=== PATIENT | female | born 2005 | race Caucasian/White ===

== ENCOUNTER 2023-01-15 10:25 | Emergency (ER) | payer OTHER, SELFPAY ==
--- NOTE | ~2023-01-15 | XR_ITS ---
EXAMINATION: XR chest 2V 01/15/2023 11:46 INDICATION: Cough and fever. Shortness of breath. PROCEDURE: 2 view chest COMPARISON: No prior studies for comparison. FINDINGS: The lungs are clear. The cardiomediastinal silhouette is within normal limits. There are no pleural effusions. There is no pneumothorax suspected. IMPRESSION: 1: NO ACUTE CARDIOPULMONARY DISEASE. Reviewed, dictated and finalized at location B.
[2023-01-15 10:34] VITALS: BP 145/106; PULSE 64; RESP 18; TEMP 36.9; O2SAT 100
[2023-01-15 10:37] VITALS: O2SAT 98
--- NOTE | 2023-01-15 10:39 | ED.URI ---
HPI - URI/Sore Throat General Chief Complaint: Upper Respiratory Infection Stated Complaint: hurts to breathe, fever, n/v, cough x 3 weeks Time Seen by Provider: 01/15/23 10:29 History of Present Illness HPI Narrative: 17-year-old female presents the emergency room for evaluation of sinus congestion, postnasal drip, cough, shortness of breath primarily on the right side. Patient states that she has been feeling poorly for approximately 3 weeks. Was seen at [facility] and was tested for COVID flu mono and strep and they were all negative. Related Data Allergies Allergy/AdvReac Type Severity Reaction Status Date / Time No Known Allergies Allergy Verified 01/15/23 10:39 Review of Systems Review of Systems: CONSTITUTIONAL: Denies fever, chills, or sweats. EYES: Denies visual changes, redness, or discharge. ENT: Denies rhinorrhea, congestion, sore throat, or otalgia. CARDIOVASCULAR: Denies chest pain, palpitations, or edema. RESPIRATORY: Reports cough GASTROINTESTINAL: Denies abdominal pain, nausea, vomiting, or diarrhea. GENITOURINARY: Denies dysuria or hematuria. SKIN: Denies rash or itching. MUSCULOSKELETAL: Denies back pain, joint pain, or myalgia. NEUROLOGIC: Denies headache, numbness, dizziness, or weakness. PSYCHIATRIC: Denies anxiety or depression. Exam Narrative: GENERAL: Well-appearing, well-nourished, no physical limitations, and in no acute distress. HEAD: Normocephalic, atraumatic. EYES: Conjunctivae normal, PERRLA and EOMI. ENT: External nose normal, Nares clear, no rhinorrhea or epistaxis. Mucous membranes moist. Oropharynx without tonsillar hypertrophy exudate or other lesions. External ears normal, bilateral TMs normal bilaterally NECK: Supple. No adenopathy or masses. CHEST: Clear to auscultation. No respiratory distress. No wheezes rales or rhonchi. HEART: Regular rate and rhythm. No murmur heard. Normal peripheral pulses. EXTREMITIES: Normal range of motion. No edema. No clubbing or cyanosis SKIN: Warm, dry, no rash. No noted wounds NEURO: No focal deficits. Alert and oriented x3. MAEW. CN's II-XI intact bilaterally, normal gait PSYCH: Cooperative. Normal mood and affect. Course Vital Signs Vital signs: Vital Signs Temperature 36.9 C 01/15/23 10:34 Pulse Rate 64 01/15/23 10:34 Respiratory Rate 18 01/15/23 10:34 Blood Pressure 145/106 H 01/15/23 10:34 Pulse Oximetry 100 01/15/23 10:34 Oxygen Delivery Room Air 01/15/23 10:34 Temperature 36.9 C 01/15/23 10:34 Pulse Rate 64 01/15/23 11:00 Respiratory Rate 18 01/15/23 11:00 Blood Pressure 128/85 01/15/23 11:00 Pulse Oximetry 98 01/15/23 11:00 Oxygen Delivery Room Air 01/15/23 10:37 MDM - URI/Sore Throat Lab Data Labs: Lab Results 01/15/23 Range/Units 10:43 Influenza A (RT-PCR) Negative (Negative) Influenza B (RT-PCR) Negative (Negative) RSV (RT-PCR) Negative (Negative) SARS-CoV-2 RNA (RT-PCR) Positive A (Negative) Discharge Plan Discharge Clinical Impression: COVID, Cough Patient Disposition: Home, Self-Care Condition: Stable Instructions: Antibiotic Form, COVID-19 (Coronavirus Disease 2019) (ED) Prescriptions: New promethazine-DM 6.25-15 mg/5 mL syrup 5 ml PO Q4-6H PRN (Reason: cough) Qty: 118 0RF albuterol sulfate 90 mcg/actuation aerosol powdr breath activated 2 inh inhalation Q6H PRN (Reason: shortness of breath) Qty: 1 0RF Follow-up/Referrals: PHYSICIAN NOT ON STAFF,NONSTAFF [Primary Care Provider] - Time of Disposition: 12:12
[2023-01-15 11:00] VITALS: BP 128/85; PULSE 64; RESP 18; O2SAT 98
[2023-01-15 11:22] LABS: Influenza A QL RT-PCR Negative (Negative); Influenza B QL RT-PCR Negative (Negative); RSV RNA, RT-PCR Negative (Negative); SARS-CoV-2 RNA PCR Positive (Negative)
[2023-01-15 12:21] VITALS: BP 117/78; PULSE 62; RESP 18; O2SAT 99
== END 2023-01-15 12:22 | disposition home or self-care (01) ==
PROVIDERS: Emergency Provider Nurse Practitioner Family
DX: U07.1 COVID-19 (principal); R05.9 Cough, unspecified
CPT/HCPCS: 71046; 87637; 99283

== ENCOUNTER 2023-01-19 22:11 | Emergency (ER) | payer OTHER, SELFPAY ==
[2023-01-19] VITALS (11 sets, daily range): BP systolic 116–126; BP diastolic 77–82; PULSE 66–81; RESP 12–20; TEMP 36.9; O2SAT 94–100
--- NOTE | 2023-01-19 22:45 | ED.GENADULT ---
HPI - General Adult General Chief complaint: Shortness of Breath/Dyspnea Stated complaint: SOB, COVID+ Time Seen by Provider: 01/19/23 22:36 History of Present Illness HPI narrative: Patient presents to the emergency department with concern for shortness of breath. She has been feeling slight shortness of breath for the past couple weeks. 2 home COVID tests are negative. She was driving with people in the car today when she felt acutely more short of breath. Pulled the car over. Denies headache body aches chills or cough. Had fever last week. She is mostly concerned that she may have COVID. She denies history of asthma. Had vocal cord dysfunction when she was younger and PVCs but does not have any active problems with either Related Data Allergies Allergy/AdvReac Type Severity Reaction Status Date / Time No Known Allergies Allergy Verified 01/15/23 10:39 Review of Systems Review of Systems: CONSTITUTIONAL: Denies fever, chills, or sweats. EYES: Denies visual changes, redness, or discharge. ENT: Denies rhinorrhea, congestion, sore throat, or otalgia. CARDIOVASCULAR: Denies chest pain, palpitations, or edema. RESPIRATORY: Denies cough GASTROINTESTINAL: Denies abdominal pain, nausea, vomiting, or diarrhea. GENITOURINARY: Denies dysuria or hematuria. SKIN: Denies rash or itching. MUSCULOSKELETAL: Denies back pain, joint pain, or myalgia. NEUROLOGIC: Denies headache, numbness, or weakness. PSYCHIATRIC: Denies anxiety or depression. Exam Narrative: GENERAL: Well-appearing, well-nourished, and in no acute distress. HEAD: Normocephalic, atraumatic. EYES: PERRLA and EOMI. ENT: Nares clear, no rhinorrhea or epistaxis. Mucous membranes moist. NECK: Supple. CHEST: Clear to auscultation. No respiratory distress. HEART: Regular rate and rhythm. ABDOMEN: Soft, nontender, nondistended. EXTREMITIES: Normal range of motion. No edema. SKIN: Warm, dry, no rash. NEURO: No focal deficits. Alert and oriented x3. PSYCH: Normal mood and affect. Course Course Emergency Course: Differential diagnosis includes but not limited to COVID, other viral illness, PE, anxiety attack PERC score 0 COVID test pending Vital Signs Vital signs: Vital Signs Temperature 36.9 C 01/19/23 22:21 Pulse Rate 80 01/19/23 22:21 Respiratory Rate 14 01/19/23 22:21 Blood Pressure 126/82 01/19/23 22:21 Pulse Oximetry 97 01/19/23 22:21 Oxygen Delivery Room Air 01/19/23 22:21 Temperature 36.9 C 01/19/23 22:21 Pulse Rate 60 01/20/23 00:17 Respiratory Rate 17 01/19/23 23:18 Blood Pressure 118/77 01/19/23 23:16 Pulse Oximetry 99 01/19/23 23:18 Oxygen Delivery Room Air 01/19/23 23:38 Medical Decision Making MDM Narrative Medical decision making narrative: COVID test negative. Vital signs stable. Patient 99% on room air since arrival. She is in no distress. Will DC to home. Likely viral upper respiratory illness Vital Signs Vital Signs: Vital Signs Temperature 36.9 C 01/19/23 22:21 Pulse Rate 80 01/19/23 22:21 Respiratory Rate 14 01/19/23 22:21 Blood Pressure 126/82 01/19/23 22:21 Pulse Oximetry 97 01/19/23 22:21 Oxygen Delivery Room Air 01/19/23 22:21 Temperature 36.9 C 01/19/23 22:21 Pulse Rate 60 01/20/23 00:17 Respiratory Rate 17 01/19/23 23:18 Blood Pressure 118/77 01/19/23 23:16 Pulse Oximetry 99 01/19/23 23:18 Oxygen Delivery Room Air 01/19/23 23:38 Lab Data Labs: Lab Results 01/19/23 Range/Units 22:56 Influenza A (RT-PCR) Negative (Negative) Influenza B (RT-PCR) Negative (Negative) RSV (RT-PCR) Negative (Negative) SARS-CoV-2 RNA (RT-PCR) Negative (Negative) Discharge Plan Discharge Clinical Impression: Shortness of breath Patient Disposition: Home, Self-Care Condition: Stable Instructions: Acute Bronchitis (ED) Additional Instructions: Use previous albuterol inhaler as needed for s
[2023-01-19 23:45] LABS: Influenza A QL RT-PCR Negative (Negative); Influenza B QL RT-PCR Negative (Negative); RSV RNA, RT-PCR Negative (Negative); SARS-CoV-2 RNA PCR Negative (Negative)
[2023-01-20] VITALS (10 sets, daily range): BP systolic 107–127; BP diastolic 63–87; PULSE 56–63; RESP 13–20; O2SAT 100
--- NOTE | 2023-01-20 00:16 | PC.NURSE ---
Pt resting quietly per cart in nad at this time. Resp even and nonlabored. Will cont to monitor.
== END 2023-01-20 01:12 | disposition home or self-care (01) ==
PROVIDERS: Emergency Provider Emergency Medicine
DX: R06.02 Shortness of breath (principal); Z20.822 Contact with and (suspected) exposure to COVID-19
CPT/HCPCS: 87637; 99283

== ENCOUNTER 2023-01-20 20:57 | Emergency (ER) | payer OTHER, SELFPAY ==
[2023-01-20 21:17] VITALS: BP 110/74; PULSE 60; RESP 15; TEMP 36.4; O2SAT 100
--- NOTE | 2023-01-20 22:37 | PC.NURSE ---
patient does not want to continue to wait. left from waiting room
== END 2023-01-20 23:03 | disposition left against medical advice (07) ==
DX: R13.10 Dysphagia, unspecified (principal)
CPT/HCPCS: 99199

== ENCOUNTER 2023-01-31 10:59 | Emergency (ER) | payer OTHER, SELFPAY ==
[2023-01-31] VITALS (25 sets, daily range): BP systolic 85–140; BP diastolic 52–82; PULSE 48–74; RESP 12–23; TEMP 36.4; O2SAT 95–100
--- NOTE | ~2023-01-31 | XR_ITS ---
EXAMINATION: XR chest 2V DATE: 01/31/2023 12:17 INDICATION: Right chest pain on aspiration. TECHNIQUE: Frontal and lateral views of the chest were obtained. COMPARISON: Chest 2 views 01/15/2023 FINDINGS: There is no pneumonia, pleural effusion, or pneumothorax. The heart size is normal. IMPRESSION: 1. No acute cardiopulmonary disease. Reviewed, dictated and finalized at location A.
--- NOTE | 2023-01-31 11:18 | ECG_ITS ---
Measurements Intervals Arnold Rate: 58 P: 24 MT: 167 QRS: 8 QRSD: 106 T: 9 QT: 406 QTc: 401 Interpretive Statements SINUS BRADYCARDIA INTRAVENTRICULAR CONDUCTION DELAY ABNORMAL ECG NO PREVIOUS ECG AVAILABLE FOR COMPARISON Electronically Signed On 01-31-2023 14:05:52 CDT by Chad Cao M.D.
[2023-01-31] MEDS: ASPIRIN 81 MG CHEWABLE TABLET 324 MG PO (11:42)
[2023-01-31 11:53] LABS: Basophils Percent Auto 0.2 % (0.2-1.2); Eosinophils Absolute Auto 0.1 K/mm3 (0-0.3); Hematocrit 36.8 % (37.0-47.0); Hemoglobin 11.2 g/dL (12.0-15.0); Immature Granulocyte Absolute 0.03 K/mm3 (0.00-0.031); Immature Granulocyte Percent A 0.3 % (0-0.5); Lymphocytes Absolute Auto 3.24 K/mm3 (0.9-3.2); Lymphocytes Percent Auto 33.4 % (18.3-44.2); Mean Corpuscular HGB Conc 30.4 g/dl (32-36); Mean Corpuscular Hemoglobin 24.6 pg (26-34); Mean Corpuscular Volume 80.9 fl (80-100); Mean Platelet Volume 9.5 fl (7.4-10.4); Monocytes Absolute Auto 0.7 K/mm3 (0.1-0.6); Monocytes Percent Auto 6.9 % (2.6-8.5); Neutrophils Absolute Auto 5.7 K/mm3 (1.3-6.7); Neutrophils Percent Auto 58.2 % (45.5-73.1); Platelet Count Result 256 k/mm3 (150-375); Red Blood Count 4.55 M/mm3 (4.2-5.4); Red Cell Distribution Width 13.4 % (11.5-14.5); White Blood Count 9.7 K/mm3 (4.5-10.0)
[2023-01-31 11:55] LABS: Prothrombin Time 13.7 Seconds (11.1-14.7)
[2023-01-31 11:56] LABS: Partial Thromboplastin Time 28.1 SECONDS (22.3-36.8)
--- NOTE | 2023-01-31 11:58 | PC.NURSE ---
updated rohith Wheat mom w/ permission from pt. phone #[phone]
[2023-01-31 12:02] LABS: Alanine Aminotransferase 33 U/L (6-35); Albumin Level 3.9 g/dL (3.7-5.6); Alkaline Phosphatase 54 U/L (45-116); Anion Gap 6 mmol/L (8-16); Aspartate Amino Transferase 27 U/L (14-36); Bilirubin,Total 0.6 mg/dL (0.2-1.3); Blood Urea Nitrogen 10 mg/dL (8-21); Calcium 8.4 mg/dL (8.9-10.7); Carbon Dioxide 26 mmol/L (22-30); Chloride 105 mmol/L (98-107); Estimated CRCL calculation 154 ml/min; Estimated Glomerular Filt Rate > 60; Glucose 83 mg/dL (65-110); Lipase 103 U/L (23-300); Potassium 3.9 mmol/L (3.4-5.0); Sodium 137 mmol/L (134-143)
[2023-01-31 12:10] LABS: Troponin I < 0.012 ng/mL (0.000-0.034)
--- NOTE | 2023-01-31 12:19 | PC.NURSE ---
pt off floor to xray @1214 and back @1210
[2023-01-31 14:04] LABS: D Dimer 0.28 ug/mL (<0.48)
[2023-01-31] MEDS: KETOROLAC 15 MG/ML VIAL (*BKC) IV PUSH (14:38)
[2023-01-31 14:41] LABS: Troponin I < 0.012 ng/mL (0.000-0.034)
--- NOTE | 2023-01-31 14:41 | ED.CHESTPAIN ---
HPI - Chest Pain General Chief Complaint: Chest Pain Stated Complaint: dizzy/CP Time Seen by Provider: 01/31/23 13:03 Source: patient Mode of arrival: EMS Limitations: no limitations History of Present Illness HPI narrative: This is a 17 year old female that presents to the ER for chest pain. Reports she woke up with a sharp intermittent chest pain. Worse with deep breathing. Reports some lightheadedness. Reports she is recovering from COVID, diagnosed about 2 weeks ago. Denies shortness of breath or lower extremity edema. Related Data Allergies Allergy/AdvReac Type Severity Reaction Status Date / Time No Known Allergies Allergy Verified 01/31/23 11:42 Review of Systems Review of Systems: CONSTITUTIONAL: Denies fever CARDIOVASCULAR: Reports chest pain. Denies edema. RESPIRATORY: Denies dyspnea. All systems reviewed & are unremarkable except as noted in HPI and below PMFSH Past Medical History Medical History (Updated 01/31/23 @ 14:56 by Emilia Bernstein PA-C) No active medical problems Social History Social History (Updated 01/31/23 @ 14:45 by Emilia Bernstein PA-C) Smoking status: Current every day smoker Exam Narrative: GENERAL: Well-appearing, well-nourished, and in no acute distress. HEAD: Normocephalic, atraumatic. EYES: EOMI. CHEST: Clear to auscultation. No respiratory distress. No wheezes rales or rhonchi HEART: Regular rate and rhythm. No murmur heard. Normal peripheral pulses. EXTREMITIES: Normal range of motion. No edema. SKIN: Warm, dry, no rash. NEURO: No focal deficits. Alert and oriented x3. PSYCH: Normal mood and affect Course Course Emergency Course: Patient updated on work-up and agrees with plan of care Vital Signs Vital signs: Vital Signs Temperature 97.5 F L 01/31/23 11:04 Pulse Rate 71 01/31/23 11:04 Respiratory Rate 12 01/31/23 11:04 Blood Pressure 140/82 01/31/23 11:04 Pulse Oximetry 99 01/31/23 11:04 Oxygen Delivery Room Air 01/31/23 11:04 Temperature 97.5 F L 01/31/23 11:04 Pulse Rate 56 L 01/31/23 14:15 Respiratory Rate 17 01/31/23 14:15 Blood Pressure 91/54 L 01/31/23 14:01 Pulse Oximetry 98 01/31/23 14:15 Oxygen Delivery Room Air 01/31/23 11:04 MDM - Chest Pain MDM Narrative Medical decision making narrative: Patient presents to the emergency department for pleuritic chest pain. Recently recovering from COVID. She is afebrile and nontoxic-appearing. Oxygen saturation is normal on room air. Lungs are clear on exam. CBC is without leukocytosis. Shows normocytic anemia with hemoglobin of 11.2. Metabolic panel without concerning findings. EKG without acute ST changes and baseline and 3-hour troponin are negative. Chest x-ray without acute cardiopulmonary abnormality. D-dimer is negative. Heart score is 1. Patient and family updated on workup and agree with plan of care. She is to follow up with primary doctor. She was given warnings to return to the ER Differential Diagnosis Differential diagnosis: Likely stable angina, atypical chest pain, costochondritis and other (PE) Lab Data Attestation: I reviewed the patient's lab results. 01/31/23 11:32 01/31/23 11:32 Labs: Lab Results 01/31/23 01/31/23 Range/Units 11:32 14:12 WBC 9.7 (4.5-10.0) K/mm3 RBC 4.55 (4.2-5.4) M/mm3 Hgb 11.2 L (12.0-15.0) g/dL Hct 36.8 L (37.0-47.0) % MCV 80.9 (80-100) fl MCH 24.6 L (26-34) pg MCHC 30.4 L (32-36) g/dl RDW 13.4 (11.5-14.5) % Plt Count 256 (150-375) k/mm3 MPV 9.5 (7.4-10.4) fl Immature Gran % (Auto) 0.3 (0-0.5) % Neut % (Auto) 58.2 (45.5-73.1) % Lymph % (Auto) 33.4 (18.3-44.2) % [place] % (Auto) 6.9 (2.6-8.5) % Eos % (Auto) 1.0 (0-4.4) % Baso % (Auto) 0.2 (0.2-1.2) % Lymph # (Auto) 3.24 H (0.9-3.2) K/mm3 [place] # (Auto) 0.7 H (0.1-0.6) K/mm3 Eos # (Auto) 0.1 (0-0.3) K/mm3 Baso # (Auto) 0.0 (0.0-0.1) K/mm3
== END 2023-01-31 15:05 | disposition home or self-care (01) ==
PROVIDERS: Emergency Medicine; Emergency Provider Physician Assistant
DX: R07.89 Other chest pain (principal); U07.1 COVID-19; F17.200 Nicotine dependence, unspecified, uncomplicated; R00.1 Bradycardia, unspecified; I45.9 Conduction disorder, unspecified
CPT/HCPCS: 36415; 71046; 80053; 83690; 84484; 85025; 85380; 85610; 85730; 93005; 96374; 99284; A9270; J1885

== ENCOUNTER 2023-04-02 20:24 | Emergency (ER) | payer OTHER, SELFPAY ==
[2023-04-02 20:30] VITALS: BP 146/88; PULSE 77; RESP 18; TEMP 36.6; O2SAT 100
--- NOTE | 2023-04-02 23:35 | ED.GENADULT ---
HPI - General Adult General Chief complaint: Headache Stated complaint: headaches Time Seen by Provider: 04/02/23 23:03 History of Present Illness HPI narrative: patient is a 17-year-old female presents emerged from with chief complaint of headache. Patient reports that for the last 2 weeks has been having headache has gotten worse today patient states that it was so bad that she almost caused a car accident the patient states that she has been off of her medication for some time or headaches patient reports she has not have a local primary care provider or local neurologist. The patient reports this is not her worst headache of her life Related Data Allergies Allergy/AdvReac Type Severity Reaction Status Date / Time No Known Allergies Allergy Verified 01/31/23 11:42 Review of Systems Review of Systems: A 10 system review of systems was completed on the patient and is negative except for what is stated in the HPI. Nursing and ancillary documentation was reviewed. [facility] Past Medical History Medical History No active medical problems Social History Social History Smoking status: Current every day smoker Exam Narrative: GENERAL: Well-appearing, well-nourished, and in no acute distress. HEAD: Normocephalic, atraumatic. EYES: PERRLA and EOMI. ENT: Nares clear, no rhinorrhea or epistaxis. Mucous membranes moist. NECK: Supple. CHEST: Clear to auscultation. No respiratory distress. HEART: Regular rate and rhythm. No murmur heard. Normal peripheral pulses. ABDOMEN: Soft, nontender, nondistended, normal active bowel sounds. EXTREMITIES: Normal range of motion. No edema. SKIN: Warm, dry, no rash. NEURO: No focal deficits. Alert and oriented x3. PSYCH: Normal mood and affect. Course Vital Signs Vital signs: Vital Signs Temperature 36.6 C 04/02/23 20:30 Pulse Rate 77 04/02/23 20:30 Respiratory Rate 18 04/02/23 20:30 Blood Pressure 146/88 H 04/02/23 20:30 Pulse Oximetry 100 04/02/23 20:30 Temperature 36.6 C 04/02/23 20:30 Pulse Rate 77 04/02/23 20:30 Respiratory Rate 18 04/02/23 20:30 Blood Pressure 146/88 H 04/02/23 20:30 Pulse Oximetry 100 04/02/23 20:30 Medical Decision Making MDM Narrative Medical decision making narrative: differential diagnosis includes migraine headache, tension headache, patient is currently alert oriented and has no focal neurological deficit is reporting this is not the worst headache of her life. The patient reports this is her typical type migraine patient received typical migraine cocktail and is feeling much better at this time Vital Signs Vital Signs: Vital Signs Temperature 36.6 C 04/02/23 20:30 Pulse Rate 77 04/02/23 20:30 Respiratory Rate 18 04/02/23 20:30 Blood Pressure 146/88 H 04/02/23 20:30 Pulse Oximetry 100 04/02/23 20:30 Temperature 36.6 C 04/02/23 20:30 Pulse Rate 77 04/02/23 20:30 Respiratory Rate 18 04/02/23 20:30 Blood Pressure 146/88 H 04/02/23 20:30 Pulse Oximetry 100 04/02/23 20:30 Discharge Plan Discharge Clinical Impression: Migraine Patient Disposition: Home, Self-Care Condition: Stable Instructions: Antibiotic Form, Migraine Headache (ED), Acute Headache (ED) Prescriptions: No Action promethazine-DM 6.25-15 mg/5 mL syrup 5 ml PO Q4-6H PRN (Reason: cough) Qty: 118 0RF albuterol sulfate 90 mcg/actuation aerosol powdr breath activated 2 inh inhalation Q6H PRN (Reason: shortness of breath) Qty: 1 0RF Follow-up/Referrals: UNKNOWN,DOCTOR [Primary Care Provider] - Time of Disposition: 00:47
[2023-04-03] MEDS: SODIUM CHLORIDE 0.9% IV 1,000 ML 999 ML IV CONT (00:10)
[2023-04-03] MEDS: diphenhydrAMINE HCl INJ 50 MG/ML VIAL IV PUSH (00:11)
[2023-04-03] MEDS: PROCHLORPERAZINE EDISYLATE 10 MG/2 ML VIAL IV PUSH (00:11)
[2023-04-03] MEDS: KETOROLAC 30 MG/ML VIAL (*BKC) IV PUSH (00:11)
== END 2023-04-03 01:16 | disposition home or self-care (01) ==
PROVIDERS: Emergency Provider Emergency Medicine
DX: G43.909 Migraine, unspecified, not intractable, without status migrainosus (principal); F17.200 Nicotine dependence, unspecified, uncomplicated
CPT/HCPCS: 96361; 96374; 96375; 99284; J0780; J1200; J1885; J7030